=== PATIENT | male | born 1930 | race Caucasian/White ===

== ENCOUNTER 2016-08-22 13:55 | Outpatient (CLI) | payer MEDICARE, OTHER ==
--- NOTE | 2016-08-22 14:25 | Diagnostic Imaging Report ---
[facility] [address] [facility].[address] [address] Report Submission Date: Aug 22, 2016 2:19:59 PM NURSE PRACTITIONER PER DIEM Patient Study Name: DILLON HUMPHREYS Date: Aug 22, 2016 2:07:05 PM NURSE PRACTITIONER PER DIEM Modality Type: CR Gender: M Description: PELVIS : 28 Institution: [facility] Physician CINDY FORREST - OP Left hip -two views CLINICAL HISTORY: A fall 3 weeks ago. Continued pain that is worsening. FINDINGS: Examination of the left hip in AP and frog-leg lateral views demonstrates degenerative changes with narrowing of the hip joint space and osteophyte formation. There is no evident fracture and no lytic or blastic lesion. IMPRESSION: Degenerative changes. No fracture. Electronically signed on Aug 22, 2016 2:19:59 PM NURSE PRACTITIONER PER DIEM by: Kennedy BONILLA
== END 2016-08-22 13:56 ==
LOC: RAD 13:55
PROVIDERS: ATTEND Family Medicine
DX: M25.552 Pain in left hip (principal)

== ENCOUNTER 2017-04-07 08:12 | Outpatient (CLI) | payer MEDICARE, OTHER ==
[2017-04-07 08:55] LABS: eGFR (African) 57; eGFR (Non-African) 47
== END 2017-04-07 08:13 ==
LOC: LAB 08:12
PROVIDERS: ATTEND Internal Medicine Cardiovascular Disease
DX: I10 Essential (primary) hypertension (principal); I25.10 Atherosclerotic heart disease of native coronary artery without angina pectoris; E78.00 Pure hypercholesterolemia, unspecified
CPT/HCPCS: 36415; 80053; 80061

== ENCOUNTER 2017-04-11 14:29 | Outpatient (CLI) | payer MEDICARE, OTHER ==
--- NOTE | 2017-04-11 17:07 | Diagnostic Imaging Report ---
[facility] [address] [facility].[address] [address] Report Submission Date: Apr 11, 2017 4:02:09 PM CDT Patient Study Name: DILLON HUMPHREYS Date: Apr 11, 2017 2:48:34 PM CDT Modality Type: CR Gender: M Description: UPPER EXTREMITY : 28 Institution: [facility] Physician: DINESH NELSON - OP Examination: Plain film thumb History: Injury Comparison exams: None available Findings: 3 views the 1st digit demonstrates generalized osteopenia. No evidence for fracture. No avulsion. Avulsion off the lip of the radius. No soft tissue abnormality. Impression: Fracture of the lip of the radius. Osteopenia degenerative changes. Electronically signed on Apr 11, 2017 4:02:09 PM CDT by: Doron BONILLA
--- NOTE | 2017-04-11 17:07 | Diagnostic Imaging Report ---
[facility] [address] [facility].[address] [address] Report Submission Date: Apr 11, 2017 4:00:44 PM CDT Patient Study Name: DILLON HUMPHREYS Date: Apr 11, 2017 2:51:51 PM CDT Modality Type: CR Gender: M Description: UPPER EXTREMITY : 28 Institution: [facility] Physician: DINESH NELSON - OP Examination: Plain film wrist History: Fall Comparison exams: None available Findings: 3 views the wrist demonstrates generalized osteopenia. Fracture involving the lip of the radius. No other cortical disruption. Chondrocalcinosis. Generalized articular degenerative changes. No soft tissue abnormality. Impression: Osteopenia and degenerative changes. Fracture of the lip of the radius. Correlate with mechanism of injury. Electronically signed on Apr 11, 2017 4:00:44 PM CDT by: Doron BONILLA
== END 2017-04-11 14:30 ==
LOC: RAD 14:29
PROVIDERS: ATTEND Family Medicine
DX: S52.509A Unspecified fracture of the lower end of unspecified radius, initial encounter for closed fracture (principal); W19.XXXA Unspecified fall, initial encounter; Y93.9 Activity, unspecified; Y99.9 Unspecified external cause status
CPT/HCPCS: 73110; 73140

== ENCOUNTER 2017-12-18 12:58 | Outpatient (CLI) | payer MEDICARE, OTHER ==
[2017-12-18 13:20] LABS: BASOPHILS % 0.2 (0.0-1.5); EOSINOPHILS % 1.5 % (0.0-6.8); MEAN CORPUSCULAR HEMOGLOBIN 31.1 pg (28.0-34.0); MEAN CORPUSCULAR VOLUME 96.6 fl (80.0-100.0); MONOCYTES % 5.9 % (0.0-11.0); NEUTROPHILS # 6.1 # k/uL (1.4-7.7)
[2017-12-18 13:28] LABS: APPEARANCE,URINE Clear (CLEAR); COLOR,URINE Yellow (YELLOW); OCCULT BLOOD,URINE Negative (NEGATIVE); UROBILINOGEN URINE 0.2 Eu (0.2-1.0)
[2017-12-18 13:35] LABS: eGFR (African) 57; eGFR (Non-African) 47
--- NOTE | 2017-12-18 18:06 | Diagnostic Imaging Report ---
DINESH NELSON [facility] [address] [address] Report Submission Date: December 18, 2017 2:12:30 PM CDT Patient Study Name: DILLON HUMPHREYS Date: December 18, 2017 1:32:00 PM CDT Modality Type: DX Gender: M Description: CHEST : 28 Institution: [facility] Physician: DINESH NELSON Examination: PA and lateral chest. History: Evaluate lung kincaid. FELL X 10 DAYS AGO (Hx) Findings: PA lateral chest demonstrate a prominent cardiac and mediastinal silhouette. Sternotomy wires. Elevated left hemidiaphragm. Chronic interstitial changes. No focal infiltrate. No blunting of the costophrenic margins. Articular degenerative changes. Impression: Chronic parenchymal changes. No acute appearing pulmonary process. Electronically signed on December 18, 2017 2:12:30 PM CDT by: Doron BONILLA
--- NOTE | 2017-12-18 18:07 | Diagnostic Imaging Report ---
DINESH NELSON [facility] [address] [facility] [address] [place], [place]. [address] Report Submission Date: December 18, 2017 2:15:05 PM CDT Patient Study Name: DILLON HUMPHREYS Date: December 18, 2017 1:29:00 PM CDT Modality Type: CT\SR Gender: M Description: CT BRAIN W/O CONTRAST : 28 Institution: [facility] Physician: DINESH NELSON Examination: CT head without contrast History: FELL X 10 DAYS AGO (Hx) Comparison exam: 20 June 2016 Technique: Noncontrast head CT protocol. Findings: Ventricles and sulci are prominent, though stable. Cerebrocerebellar parenchyma demonstrates periventricular low attenuation consistent with small vessel disease: also stable. No evidence for parenchymal hemorrhage. No evidence for mass or mass effect. No midline shift. No extra axial fluid collections. Partial visualization of the paranasal sinuses, mastoid air cells, orbits, skull and scalp without gross irregularity. Falx calcifications. Streak artifact from dental hardware. Impression: Stable age related changes. No acute parenchymal process. No hemorrhage. Electronically signed on December 18, 2017 2:15:05 PM CDT by: Doron BONILLA
== END 2017-12-18 13:02 ==
LOC: LAB 12:58
PROVIDERS: ATTEND Family Medicine
DX: I25.9 Chronic ischemic heart disease, unspecified (principal); R41.82 Altered mental status, unspecified; W19.XXXA Unspecified fall, initial encounter; Y99.9 Unspecified external cause status
CPT/HCPCS: 36415; 70450; 71046; 80053; 81002; 82550; 84484; 85025; 87086